=== PATIENT | male | born 1975 | race American Indian/Alaskan Native ===

== ENCOUNTER 2022-04-30 01:20 | Emergency (ER) | payer MEDICARE ==
--- NOTE | 2022-04-30 03:07 | XRay Report ---
CHEST 1 VIEW INDICATION / CLINICAL INFORMATION: Dyspnea. COMPARISON: Chest x-ray 05/11/2014 FINDINGS: Heart size appears within normal limits. Lungs are clear for degree of inspiration. Bones and soft ti ssues demonstrate no acute findings. IMPRESSION: 1. No active cardiopulmonary disease. Signer Name: Israel Brar II, MD Signed: 04/30/2022 3:03 AM Workstation Name: [id number]
[2022-04-30 03:26] LABS: Basophils % (Auto) 0.4 % (0.0-1.8); Eosinophils % (Auto) 0.3 % (0.0-4.3); Hematocrit 42.9 % (35.5-45.6); Hemoglobin 13.8 gm/dl (11.8-15.2); Lymphocytes % (Auto) 15.6 % (13.4-35.0); Mean Corpuscular HGB Conc 32 % (32-34); Mean Corpuscular Volume 78 fl (84-94); Monocytes # (Auto) 0.9 K/mm3 (0.0-0.8); Monocytes % (Auto) 14.4 % (0.0-7.3); Platelet Count 277 K/mm3 (140-440); Red Blood Count 5.52 M/mm3 (3.65-5.03); Red Cell Distribution Width 13.8 % (13.2-15.2)
[2022-04-30 03:40] LABS: Alanine Aminotransferase 28 units/L (7-56); Albumin 4.6 g/dL (3.9-5); BUN/Creatinine Ratio 7; Blood Urea Nitrogen 7 mg/dL (9-20); Calcium 9.1 mg/dL (8.4-10.2); Hemolysis Index 5
[2022-04-30] MEDS ORDERED: KETOROLAC 60 MG/2 ML INJ IM ONE (04:46)
[2022-04-30] MEDS ORDERED: ACETAMINOPHEN 325 MG TAB PO ONE (04:47)
--- NOTE | 2022-04-30 05:23 | Emergency Department Report ---
ED General Adult HPI - General Chief complaint: Dyspnea/Respdistress Stated complaint: AUGUSTIN/COVID POSITVIE Time Seen by Provider: 04/30/22 02:36 Source: patient Mode of arrival: Stretcher Limitations: Physical Limitation - History of Present Illness Initial comments: Patient is a 46-year-old male presented ED with complaint of sore throat, cough, malaise and shortness of breath. States he tested positive for COVID-19 yesterday. States he believes he contracted it from his son who has had symptoms for the past few days. Severity scale (0 -10): 0 - Related Data Home Medications Medication Instructions Recorded Confirmed Last Taken OXcarbazepine [Trileptal] 300 mg PO BID 10/04/14 09/17/15 09/17/15 atenoloL [Tenormin] 50 mg PO DAILY 10/04/14 09/17/15 09/17/15 levETIRAcetam [Keppra] 1,500 mg PO BID 10/04/14 09/17/15 09/17/15 Amlodipine Besylate [Norvasc] 5 mg PO QHS 01/07/15 09/17/15 09/17/15 Aspirin EC [Aspirin Enteric Coated 81 mg PO QDAY 09/17/15 09/17/15 09/17/15 TAB] Previous Rx's Medication Instructions Recorded Last Taken Type Butalb/Acetamin/Caff 50-325-40 1 - 2 tab PO Q8HR PRN #10 tablet 04/26/20 Unknown Rx [Fioricet 50-325-40] Meclizine HCl [Meclizine CHEW] 25 mg PO QID PRN #20 tab.chew 04/26/20 Unknown Rx Ondansetron [Zofran Odt] 4 mg PO Q8HR #12 tab.rapdis 04/30/22 Unknown Rx methylPREDNISolone [Medrol 4MG 4 mg PO DAILY 6 Days 04/30/22 Unknown Rx DOSEPAK (21 tabs)] Allergies Allergy/AdvReac Type Severity Reaction Status Date / Time albuterol Allergy Cardiac Verified 01/07/14 09:03 Arrest moxifloxacin HCl Allergy Diarrhea,de Verified 01/07/14 09:03 [From Avelox] pression Penicillins Allergy Anaphylaxis,throat Verified 01/07/14 09:03 closes, hives,swelling ED Review of Systems ROS: Stated complaint: AUGUSTIN/COVID POSITVIE Other details as noted in HPI ED Past Medical Hx - Past Medical History Previous Medical History?: Yes Hx Hypertension: Yes Hx CVA: Yes (Residual left-sided weakness) Hx Heart Attack/AMI: Yes (1996 echo 07/2013. EF 55%) Hx Congestive Heart Failure: No Hx Diabetes: No Hx GERD: Yes Hx Renal Disease: No Hx Headaches / Migraines: Yes (frequent headaches, no diagnosis of migraines) Hx Seizures: Yes Hx Asthma: Yes ( A CHILD) Additional medical history: Vertigo - Surgical History Past Surgical History?: Yes Hx Cholecystectomy: Yes (2013) Hx Appendectomy: Yes (1993) - Social History Smoking Status: Never Smoker Substance Use Type: None - Medications Home Medications: Home Medications Medication Instructions Recorded Confirmed Last Taken Type OXcarbazepine [Trileptal] 300 mg PO BID 10/04/14 09/17/15 09/17/15 History atenoloL [Tenormin] 50 mg PO DAILY 10/04/14 09/17/15 09/17/15 History levETIRAcetam [Keppra] 1,500 mg PO BID 10/04/14 09/17/15 09/17/15 History Amlodipine Besylate [Norvasc] 5 mg PO QHS 01/07/15 09/17/15 09/17/15 History Aspirin EC [Aspirin Enteric Coated 81 mg PO QDAY 09/17/15 09/17/15 09/17/15 History TAB] Butalb/Acetamin/Caff 50-325-40 1 - 2 tab PO Q8HR PRN #10 tablet 04/26/20 Unknown Rx [Fioricet 50-325-40] Meclizine HCl [Meclizine CHEW] 25 mg PO QID PRN #20 tab.chew 04/26/20 Unknown Rx Ondansetron [Zofran Odt] 4 mg PO Q8HR #12 tab.rapdis 04/30/22 Unknown Rx methylPREDNISolone [Medrol 4MG 4 mg PO DAILY 6 Days 04/30/22 Unknown Rx DOSEPAK (21 tabs)] ED Physical Exam - General Limitations: Physical Limitation ED Course Vital Signs 04/30/22 04/30/22 04/30/22 01:21 02:55 05:17 Temperature 101.5 F H Pulse Rate 132 H 115 H 120 H Respiratory 22 16 16 Rate Blood Pressure 196/100 Blood Pressure 137/92 139/93 [Left] O2 Sat by Pulse 96 99 96 Oximetry 04/30/22 04/30/22 06:49 08:40 Temperature 100.0 F H Pulse Rate 100 H 97 H Respiratory 16 18 Rate Blood Pressure Blood Pressure 145/82 140/84 [Left] O2 Sat by Pulse 98 96 Oximetry ED Medical Decision Making - Lab Data Result diagrams: 04/30/22 03:03 04/30/22 03:03 - Medical Decision Making CBC and CMP grossly unremarkable. Chest x-ray is normal. Patient given Tylenol for fever. IV fluids given. At this time he is not requiring any supplemental oxygen. Signed out to Dr. Mata at shift change for follow-up response to treatment and dispo. Critical care attestation.: If time is entered above; I have spent that time in minutes in the direct care of this critically ill patient, excluding procedure time. ED Disposition Clinical Impression: COVID-19 virus infection, Fever Disposition: 01 HOME / SELF CARE / HOMELESS Is pt being admited?: No Condition: Stable Additional Instructions: Please go to www.cdc.gov to review the most up to date information concerning self-quarantining. This is very important. Self-quarantine at home. Do not leave your home unless there is an emergency. Take over the counter ibuprofen as needed for fever and/or pain. You may alternate ibuprofen with acetaminophen as needed for additional fever/pain management. Be sure to drink plenty of fluids. Go to the nearest ER if you develop severe chest pain or shortness of breath, vomiting, inability tolerate liquids or solids, any fever of 100.4 Fahrenheit or higher that is not responding to ibuprofen and acetaminophen, dizziness, or if any other new worrisome symptoms develop. Prescriptions: methylPREDNISolone [Medrol 4MG DOSEPAK (21 tabs)] 4 mg PO DAILY 6 Days Ondansetron [Zofran Odt] 4 mg PO Q8HR #12 tab.rapdis Referrals: HERMELINDO LÓPEZ MD [Primary Care Provider] - 3-5 Days
[2022-04-30] MEDS ORDERED: SODIUM CHLORIDE 0.9% 1000 ML 1,000 ML IV ONE (05:24)
[2022-04-30 08:41] VITALS: BP 140/84
--- NOTE | 2022-04-30 09:12 | Event Note ---
Date: 04/30/22 Patient signed out to me by Dr. Thomas Duque at 6 AM this morning, pending repeat vitals and reassessment. Patient reports he is COVID-positive and believes he contracted symptoms from his son. Patient was initially tachycardic and febrile. He was given symptomatic treatment here. Patient assessed by me. He is comfortable and well-appearing. His tachycardia and fever have resolved. He denies any worsening active symptoms or newly evolving symptoms. Serum labs and diagnostic imaging grossly unremarkable. No further emergent work-up per my clinical assessment. Patient stable for discharge home
--- NOTE | 2022-05-03 13:43 | Electrocardiograph Report ---
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
== END 2022-04-30 10:06 | disposition home or self-care (01) ==
LOC: ED 01:20
DX: R50.9 Fever, unspecified (principal); Z20.822 Contact with and (suspected) exposure to COVID-19; I10 Essential (primary) hypertension; I21.9 Acute myocardial infarction, unspecified; K21.9 Gastro-esophageal reflux disease without esophagitis; R56.9 Unspecified convulsions; J45.909 Unspecified asthma, uncomplicated; G43.909 Migraine, unspecified, not intractable, without status migrainosus; Z86.73 Personal history of transient ischemic attack (TIA), and cerebral infarction without residual deficits; Z90.49 Acquired absence of other specified parts of digestive tract; Z88.0 Allergy status to penicillin; Z91.09 Other allergy status, other than to drugs and biological substances; Z79.899 Other long term (current) drug therapy
CPT/HCPCS: 71045; 80053; 82140; 83880; 85025; 93005; 96360; 96372; 99284; J1885; J7030